=== PATIENT | female | born 1990 | race Hispanic/Latino ===

== ENCOUNTER 2016-12-14 19:36 | Outpatient (CLI) | payer MEDICAID ==
[2016-12-14] MEDS ORDERED: LACTATED RINGERS 500 ML IV ONE (20:57)
--- NOTE | 2016-12-14 21:07 | History and Physical Report ---
History of Present Illness Date of examination: 12/14/16 (pt presents to Triage with c/o ctx and leaking fluid) History of present illness: EDC Confirmation: 01/21/2017 Gestational Age: 11 4/7 weeks Past History : 3 Term Births: 2 Living Children: 2 Para: 2 Prev : 1 Aborta: 0 # 1 Delivery date: 2009 Weeks Gestation: 37` labor: no Delivery type: Delivery location: [facility] [place] Infant Sex: Male weight: 6#12 Comments: no complications # 2 Delivery date: 2013 Weeks Gestation: 37 labor: no Delivery type: Delivery location: [facility] [place] Infant Sex: Female weight: 7#4 Comments: c/s for distress Risk Factors: Smoked Tobacco Use: Current every day smoker Cigarettes: Yes -- 1/2 pack pack(s) per day, Years smoked: 10 Counseled to quit/cut down: yes Tobacco Use Comments: pr reports cutting down from 2 packs/day Passive smoke exposure: yes Drug use: yes Substance: marijuana Comments: uses it to help with "appetite" HIV high-risk behavior: low risk Caffeine use: 4+ drinks per day Alcohol use: no Exercise: no Seatbelt use: 100 % Family History Risk Factors: Family History of MS in females < 65 years old: no Family History of MS in males < 55 years old: no Dietary Counseling: yes Past Medical History: Abnormal Pap Smear - pt reports biopsy @age 16, abnormal paps since Past Surgical History: Past Medical History Surgery (Non-system specialist): Abnormal PAP: positive DIANA Exposure: negative Infertility: negative Uterine Anomaly: negative Uterine Surgery (not C/S): negative Other Gynecologic Problems: negative Family Hx: DM - father, PGF, MGF no fh CA Social Hx: Smoker & THC use Same FOC as other 2 children Infection History Hx of STD: none HIV Risk Eval: low risk Hepatitis B Risk Eval: low risk Personal hx. of genital herpes: no Partner hx. of genital herpes: no Rash, Viral, or Febrile illness since last LMP? no Varicella/Chicken Pox Status: Previous Disease TB Risk: no Genetic History Congenital Heart Defect: Mom: no Dad: no Td Disease: Mom: no Dad: no Thalassemia Mom: no Dad: no Neural Tube Defect Mom: no Dad: no Down's Syndrome Mom: no Dad: no Mega-Sachs Mom: no Dad: no Sickle Cell Disease/Trait Mom: no Dad: no Hemophilia Mom: no Dad: no Muscular Dystrophy Mom: no Dad: no Cystic Fibrosis Mom: no Dad: no [place] Chorea Mom: no Dad: no Mental Retardation Mom: no Dad: no Fragile X Mom: no Dad: no Other Genetic/Chromosomal Disorder Mom: no Dad: no Child w/other defect Mom: no Dad: no Other: FOC born with cleft lip and palate Enviromental Exposures Xray Exposure: no Medication, drug, or alcohol use since LMP: no Chemical/Other Exposure: no Exposure to Cat Liter: no Hx of Parvovirus (Fifth Disease): no Occupational Exposure to Children: none Active Medications (reviewed today): None Current Allergies (reviewed today): SULFA (Critical) Laboratory Results Date/Time Collected: 07/06/2016 Routine Urinalysis Color: yellow Appearance: cloudy Leukocytes: negative Nitrite: negative Urobilinogen: negative Protein: negative Blood: 3+ Ketone: negative Bilirubin: negative Glucose: negative Urine HCG: positive Review of Systems General Denies fever, chills, sweats, anorexia, fatigue, weakness, malaise, weight loss and sleep disorder. Complains of nausea. Denies vomiting, headache, swelling of legs, abdominal pain, vaginal discharge, vaginal bleeding and contractions. Denies vaginal discharge, incontinence, dysuria, hematuria, urinary frequency, amenorrhea, menorrhagia, abnormal vaginal bleeding, pelvic pain, genital sores, decreased libido, painful periods, painful sex, urinary urgency, hot flashes, vaginal dryness, vaginal itching and vaginal odor. CV Denies chest pains, palpitations, syncope, dyspnea on exertion, orthopnea, PND and peripheral edema. Resp Denies cough, dyspnea at rest, excessive sputum, hemoptysis, wheezing and pleurisy. GI Denies nausea, vomiting, diarrhea, constipation, change in bowel habits, abdominal pain, melena, hematochezia, jaundice, gas/bloating, indigestion/ heartburn, dysphagia and odynophagia. Endo Denies cold intolerance, heat intolerance, polydipsia, polyphagia, polyuria and unusual weight change. Breast Denies left breast lump, right breast lump, nipple discharge, bloody discharge from nipple, breast pain, abnormal mammogram and breast enlargement. MS Denies back pain, joint pain, joint swelling, muscle cramps, muscle weakness, stiffness, arthritis, sciatica, restless legs, leg pain at night and leg pain with exertion. Derm Denies rash, itching, dryness and suspicious lesions. Neuro Denies paralysis, paresthesias, headache, seizures, tremors, vertigo, transient blindness, frequent falls, frequent headaches and difficulty walking. Psych Denies depression, anxiety, irritability and mood swings. Eyes Denies blurring, diplopia, irritation, discharge, vision loss, eye pain and photophobia. ENT Denies earache, ear discharge, tinnitus, decreased hearing, nasal congestion, nosebleeds, sore throat and hoarseness. Allergy Denies urticaria, allergic rash, hay fever and recurrent infections. Heme Denies abnormal bruising, bleeding and enlarged lymph nodes. PHYSICAL EXAM HEENT: PERRLA, normal conjunctiva, external nose and nasal mucosa normal, oropharynx clear Neck/Thyroid: supple, thyroid normal Skin no significant abnormal lesions or rashes Chest: respiratory effort normal, clear to auscultation Breasts: normal without skin changes or masses CV: regular, normal S1-S2, no murmur, no rub, no gallop Abdomen: normal bowel sounds, soft, nontender, no HSM Musculoskeletal: grossly normal ROM in joints, no joint tenderness or muscle weakness Neuro: grossly normal DTRs, sensation, strength, cranial nerves Extremities: no clubbing, cyanosis, or edema MEAT HANGER Exams Vulva/Vagina: No lesions, normal BUS, normal rugae Cervix: No lesions; no cervical motion tenderness Uterus: normal size and position, midline, mobile Fundal Ht: 10-12wk FHT: + Adnexae: no masses or tenderness Rectovaginal: no masses or tenderness Past History - Obstetrical History Expected Date of Delivery: 01/21/17 Actual Gestation: 34 Week(s) 4 Day(s) : 3 Para: 2 (last delivery c/s) Hx # Term Pregnancies: 2 Number of Living Children: 2 Medications and Allergies Allergies Allergy/AdvReac Type Severity Reaction Status Date / Time Sulfa (Sulfonamide Allergy Vomiting Verified 12/14/16 20:58 Antibiotics) Active Meds: Active Medications Lactated Ringer's (Lactated Ringers) 500 mls @ 999 mls/hr IV BOLUS ONE Stop: 12/14/16 21:27 - Physical Exam Breasts: Positive: deferred Cardiovascular: Regular rate, Normal S1, Normal S2 Lungs: Positive: Normal air movement Abdomen: Positive: normal appearance, soft, normal bowel sounds. Negative: distention, tenderness Genitourinary (Female): Positive: normal external genitalia (labial pierced), normal perenium Vulva: both: normal Vagina: Positive: normal moisture. Negative: discharge Cervix: Negative: lesion, discharge Uterus: Positive: normal size, normal contour Adnexa: both: normal Anus/Rectum: Positive: normal perianal skin, heme negative. Negative: rectal mass, hemorrhoids Extremities: Positive: normal Deep Tendon Reflex Grade: Normal +2 - Obstetrical FHR: category 1 Uterine Contraction Monitor Mode: External Cervical Dilatation: 2 (foul vaginal odor) Cervical Effacement Percentage: 10 station: -4 Uterine Contraction Pattern: Irregular Uterine Contraction Intensity: Mild Results All other labs normal. Laboratory Data-Patient Name: ANNE KRISHNA Test Date Result Blood Type 09/18/2016 O Rh 09/18/2016 Positive Antibody Screen negative Rubella 09/18/2016 IMMUNE Serology (RPR) 09/18/2016 NR HBsAg 09/18/2016 Negative Hemoglobin 10/09/2016 12.2 Hematocrit 10/09/2016 36.1 Platelets 09/18/2016 233 [id number] Chlamydia DNA 07/06/2016 Negative GC DNA/Culture 07/06/2016 Urine Culture 09/18/2016 Final report Group B Strep cult PAP 07/11/2016 Normal, Satisfactory HIV 09/18/2016 AFP/Quad Screen Glucola Test 3hr GTT (Fasting) 1 hr 2 hr 3 hr [facility]-Patient Name:ANNE KRISHNA Test Date Result Varicella Ab Sickle Cell 09/18/2016 Negative PPD Fibronectin Cystic Fibrosis Parvovirus TSH Free T4 Hepatitis C ALT AST Uric Acid Creatinine 24 hr Urine Protein MARIA TERESA Assessment and Plan 26yo @ 34 weeks with c/o ctx and leaking fluid Will get US for CESAR and BPP Will consult with if ROM Wet prep + clue cells. RX sent to [facility] pt made aware of findings BPP 02/27 CESAR 26 Pt d/c home after IVFs Pepcid All questions addressed.
[2016-12-14] MEDS ORDERED: PEPCID IV SCH (22:00)
--- NOTE | 2016-12-15 08:30 | Ultrasound Report ---
BIOPHYSICAL PROFILE: INDICATION: labor, leaking fluid. COMPARISON: None similar at this institution. TECHNIQUE: Transabdominal ultrasound with Doppler interrogation. 2 - breathing movements 2 - movements 2 - posture and tone 2 - Qualitative amniotic fluid volume 8 - TOTAL SCORE OF POSSIBLE 8 Heart Rate (bpm) 132
--- NOTE | 2016-12-15 08:40 | Ultrasound Report ---
OB LIMITED INDICATION: labor, leaking fluid. COMPARISON: None similar. TECHNIQUE: Transabdominal grayscale ultrasound with Doppler interrogation. Gestation: Chávez Amniotic Fluid: Increased (> 24 cm) CESAR = 26.3 cm Heart Rate: 124 BPM
== END 2016-12-14 22:35 | disposition home or self-care (01) ==
LOC: TRG 19:36
PROVIDERS: ATTEND Obstetrics & Gynecology
DX: O42.92 Full-term premature rupture of membranes, unspecified as to length of time between rupture and onset of labor (principal); O62.9 Abnormality of forces of labor, unspecified; O26.853 Spotting complicating pregnancy, third trimester; Z3A.34 34 weeks gestation of pregnancy
CPT/HCPCS: 76815; 76819; 96360; 96374; J7120

== ENCOUNTER 2016-12-22 13:18 | Inpatient (IN) | payer MEDICAID ==
[2016-12-22] MEDS ORDERED: LACTATED RINGERS 3,000 ML ONE (14:03)
[2016-12-22] MEDS ORDERED: REGLAN IV SCH (14:10)
[2016-12-22] MEDS ORDERED: PEPCID IV SCH (14:10)
--- NOTE | 2016-12-22 14:49 | Anesthesia Consultation ---
Anesthesia Consult and Med Hx Date of service: 12/22/16 - Airway Anesthetic Teeth Evaluation: Poor ROM Head & Neck: Adequate Mental/Hyoid Distance: Adequate Mallampati Class: Class II Intubation Access Assessment: Possibly Difficult - Pulmonary Exam CTA: Yes - Cardiac Exam Cardiac Exam: RRR - Pre-Operative Health Status ASA Pre-Surgery Classification: ASA3, Emergency Proposed Anesthetic Plan: Epidural, Spinal - Pulmonary Hx Asthma: No COPD: No Hx Pneumonia: No - Cardiovascular System Hx Hypertension: No - Central Nervous System Hx Seizures: No Hx Psychiatric Problems: No - Endocrine Hx Renal Disease: No Hx End Stage Renal Disease: No Hx Hypothyroidism: No Hx Hyperthyroidism: No - Hematic Hx Anemia: No Hx Sickle Cell Disease: No - Other Systems Hx Alcohol Use: No
--- NOTE | 2016-12-22 14:49 | Anesthesia Day of Surgery ---
Anesthesia Day of Surgery - Day of Surgery Patient Examined: Yes Patient H&P Reviewed: Yes Patient is NPO: Yes (FSP)
[2016-12-22 14:52] LABS: Basophils % (Auto) 0.2 % (0.0-1.8); Eosinophils % (Auto) 0.6 % (0.0-4.3); Hematocrit 37.5 % (30.3-42.9); Hemoglobin 12.9 gm/dl (10.1-14.3); Mean Corpuscular HGB Conc 35 % (30-34); Mean Corpuscular Hemoglobin 30 pg (28-32); Mean Corpuscular Volume 88 fl (79-97); Platelet Count 197 K/mm3 (140-440); Red Blood Count 4.26 M/mm3 (3.65-5.03); Red Cell Distribution Width 13.3 % (13.2-15.2); White Blood Count 12.9 K/mm3 (4.5-11.0)
[2016-12-22] MEDS ORDERED: BICITRA PO SCH (15:00)
[2016-12-22] MEDS ORDERED: PITOCin/NS 20 UNIT/1000ML DRIP 20 UNITS/1,000 ML BAG IV SCH ×2 (15:00→19:46)
[2016-12-22] MEDS ORDERED: LACTATED RINGERS 1,000 ML IV SCH (15:00)
[2016-12-22] MEDS ORDERED: NEO SYNEPHRINE/NS Syringe(OR USE) IV ONE (15:00)
[2016-12-22] MEDS ORDERED: ANCEF/STERILE WATER 2 GM/20 ML 2 GM/20 ML SYRINGE IV NR (15:00)
--- NOTE | 2016-12-22 15:09 | History and Physical Report ---
History of Present Illness Date of examination: 12/22/16 Date of admission: 12/22/16 13:18 History of present illness: Patient presented to labor and delivery with complaints of spontaneous rupture membranes at home with regular uterine contractions. Initial exam by RN revealed the patient to be 3 cm and in active labor. Patient with previous section scheduled for repeat and desires for permanent sterilization. Patient is being admitted for section with tubal ligation Menstrual History Regularity: regular Menses every: 28-30 days Duration: 7 LMP: 03/25/2016 LMP reliability: definite LMP character: normal test type: urine test Date: 07/06/2016 BC at conception: none Planned ? no EDC Calculations LMP: 12/30/2016 EDC Confirmation: 01/21/2017 Past History : 3 Term Births: 2 Living Children: 2 Para: 2 Prev : 1 Aborta: 0 # 1 Delivery date: 2009 Weeks Gestation: 37` labor: no Delivery type: Delivery location: [facility] [place] Sex: Male weight: 6#12 Comments: no complications # 2 Delivery date: 2013 Weeks Gestation: 37 labor: no Delivery type: Delivery location: [facility] [place] Infant Sex: Female weight: 7#4 Comments: c/s for distress Risk Factors: Smoked Tobacco Use: Current every day smoker Cigarettes: Yes -- 1/2 pack pack(s) per day, Years smoked: 10 Counseled to quit/cut down: yes Tobacco Use Comments: pr reports cutting down from 2 packs/day Passive smoke exposure: yes Drug use: yes Substance: marijuana Comments: uses it to help with "appetite" HIV high-risk behavior: low risk Caffeine use: 4+ drinks per day Alcohol use: no Exercise: no Seatbelt use: 100 % Family History Risk Factors: Family History of MT in females < 65 years old: no Family History of MT in males < 55 years old: no Dietary Counseling: yes Past Medical History: Abnormal Pap Smear - pt reports biopsy @age 16, abnormal paps since Past Surgical History: Past Medical History Surgery (Non-ob gyn): Abnormal PAP: positive DIANA Exposure: negative Infertility: negative Uterine Anomaly: negative Uterine Surgery (not C/S): negative Other Gynecologic Problems: negative Family Hx: DM - father, PGF, MGF no fh CA Social Hx: Smoker & THC use Same FOC as other 2 children Infection History Hx of STD: none HIV Risk Eval: low risk Hepatitis B Risk Eval: low risk Personal hx. of genital herpes: no Partner hx. of genital herpes: no Rash, Viral, or Febrile illness since last LMP? no Varicella/Chicken Pox Status: Previous Disease TB Risk: no Genetic History Congenital Heart Defect: Mom: no Dad: no Td Disease: Mom: no Dad: no Thalassemia Mom: no Dad: no Neural Tube Defect Mom: no Dad: no Down's Syndrome Mom: no Dad: no Mega-Sachs Mom: no Dad: no Sickle Cell Disease/Trait Mom: no Dad: no Hemophilia Mom: no Dad: no Muscular Dystrophy Mom: no Dad: no Cystic Fibrosis Mom: no Dad: no [place] Chorea Mom: no Dad: no Mental Retardation Mom: no Dad: no Fragile X Mom: no Dad: no Other Genetic/Chromosomal Disorder Mom: no Dad: no Child w/other defect Mom: no Dad: no Other: FOC born with cleft lip and palate Enviromental Exposures Xray Exposure: no Medication, drug, or alcohol use since LMP: no Chemical/Other Exposure: no Exposure to Cat Liter: no Hx of Parvovirus (Fifth Disease): no Occupational Exposure to Children: none Current Allergies (reviewed today): SULFA (Critical) Past History Past Medical History: other (see HPI) Past Surgical History: other (see HPI) STAFF MIDWIFE/APPRENTICESHIP DIRECTOR History: other (see HPI) Family/Genetic History: other (see HPI) Social history: other (see HPI) - Obstetrical History Expected Date of Delivery: 01/08/17 Actual Gestation: 37 Week(s) 4 Day(s) : 3 Para: 2 Hx # Term Pregnancies: 2 Number of Pregnancies: 0 Spontaneous Abortions: 0 Induced : 0 Number of Living Children: 2 Medications and Allergies Allergies Allergy/AdvReac Type Severity Reaction Status Date / Time Sulfa (Sulfonamide Allergy Vomiting Verified 12/14/16 20:58 Antibiotics) tramadol Allergy Itching Verified 12/22/16 14:07 Home Medications Medication Instructions Recorded Confirmed Last Taken Type Ferrous Sulfate [Feosol 325 MG tab] 325 mg PO BID #60 tablet 12/22/16 Unknown Rx Ibuprofen [Motrin 800 MG tab] 800 mg PO Q6H PRN #30 tablet 12/22/16 Unknown Rx oxyCODONE /ACETAMINOPHEN [Percocet 1 - 2 tab PO Q4H PRN #30 tablet 12/22/16 Unknown Rx 5/325 mg] Active Meds: Active Medications Citric Acid/Sodium Citrate (Bicitra) 30 ml PO ONCE YESSY Stop: 12/22/16 23:00 Famotidine (Pepcid) 20 mg IV ONCE YESSY Stop: 12/22/16 23:00 Cefazolin Sodium (Ancef/Sterile Water 2 Gm/20 Ml) 2 gm in 20 mls @ 80 mls/hr IV PREOP NR PRN Reason: Protocol Stop: 12/22/16 23:00 Lactated Ringer's (Lactated Ringers) 1,000 mls @ 2,250 mls/hr IV PREOP YESSY Stop: 12/23/16 15:27 Last Admin: 12/22/16 14:25 Dose: 2,250 mls/hr Oxytocin/Sodium Chloride (Pitocin/Ns 20 Unit/1000ml Drip) 20 units in 1,000 mls @ 0 mls/hr IV TITR YESSY PRN Reason: As Directed Metoclopramide HCl (Reglan) 10 mg IV ONCE YESSY Stop: 12/22/16 23:00 - Vital Signs Vital signs: Vital Signs Pulse BP 82 117/71 12/22/16 13:51 12/22/16 13:51 Temp Pulse Resp BP Pulse Ox 96.2 F L 93 H 12 106/70 65 L 12/22/16 14:17 12/22/16 14:28 12/22/16 14:17 12/22/16 14:26 12/22/16 14:28 - Physical Exam Breasts: Positive: deferred Cardiovascular: Regular rate Lungs: Positive: Normal air movement Abdomen: Positive: normal appearance, soft, guarding Vagina: Positive: normal moisture Extremities: Positive: edema Deep Tendon Reflex Grade: Normal +2 Results Result Diagrams: 12/22/16 14:30 Abnormal lab results 12/22/16 Range/Units 14:30 WBC 12.9 H (4.5-11.0) K/mm3 MCHC 35 H (30-34) % Seg Neutrophils % 73.5 H (40.0-70.0) % Seg Neutrophils # 9.5 H (1.8-7.7) K/mm3 All other labs normal. Assessment and Plan - Patient Problems (1) Premature rupture of membranes (PROM), onset of labor before 24 hours, antepartum Current Visit: Yes Status: Acute (2) Encounter for sterilization Current Visit: Yes Status: Acute Plan to address problem: This patient is very sure she desires permanent sterilizationPatient desires permanent sterilization. She declined temporary contraceptives. She understands the risks of the surgery include bleeding infection possible damage to bowel bladder or ureters. She understands that this surgery would make her permanently sterile. She also understands the approximate 1% failure rate. The patient understands all the above and desires to proceed. (3) Previous section Current Visit: No Status: Acute Plan to address problem: This patient active labor with previous section. Patient admitted for repeat section.Patient informed the risks of the surgery include bleeding possibly bleeding heavy enough to require blood transfusion, infection possible damage to bowel bladder ureter. All questions answered. Patient agrees to proceed
[2016-12-22] MEDS ORDERED: ANCEF/STERILE WATER 2 GM/20 ML IV ONE (15:39)
[2016-12-22] MEDS ORDERED: ePHEDrine SULFATE ONE (15:43)
[2016-12-22] MEDS ORDERED: WATER FOR IRRIG STERILE IR ONE (15:50)
[2016-12-22] MEDS ORDERED: NACL 0.9% IR ONE (15:50)
[2016-12-22] MEDS ORDERED: LACTATED RINGERS 1,000 ML ONE (15:54)
[2016-12-22] MEDS ORDERED: ZOFRAN ONE (16:07)
[2016-12-22] MEDS ORDERED: XYLOCAINE MPF 2% ONE (16:55)
[2016-12-22] MEDS ORDERED: BOOSTRIX IM ONE (17:12)
[2016-12-22 17:26] LABS: Urine Drugs of Abuse Note Disclamer
[2016-12-22] MEDS ORDERED: TORADOL IV ONE ×2 (18:00→19:00)
[2016-12-22] MEDS ORDERED: ZOFRAN IV PRN (18:58)
--- NOTE | 2016-12-22 18:58 | Post Anesthesia Evaluation ---
- Post Anesthesia Evaluation Patient Participated: Yes Airway Patent: Yes Stable Respiratory Function: Yes Temp > 96.8F: Yes Pain Manageable: Yes Adequeate Hydration: Yes Anesthesia Complications: No Block Receding Appropriately: Yes
[2016-12-22] MEDS ORDERED: NARCAN 0.4 MG/1 ML IV PRN ×2 (19:05→19:46)
[2016-12-22] MEDS ORDERED: SODIUM CHLORIDE FLUSH SYRINGE 10 ML IV NR (19:46)
[2016-12-22] MEDS ORDERED: D5LR 1,000 ML IV SCH (19:46)
[2016-12-22] MEDS ORDERED: TUCKS PAD TP PRN (19:46)
[2016-12-22] MEDS ORDERED: LANSINOH TP PRN (19:46)
[2016-12-22] MEDS: ANCEF/NS 1 GM/50 ML 1 GM/50 ML BAG IV SCH (20:18)
[2016-12-22] MEDS: DILAUDID IV PRN (20:56)
[2016-12-23] MEDS: DILAUDID IV PRN ×2 (03:07→06:17)
[2016-12-23 05:56] LABS: Hematocrit 32.4 % (30.3-42.9); Hemoglobin 11.1 gm/dl (10.1-14.3)
[2016-12-23] MEDS: MOTRIN PO PRN ×2 (08:39→13:56)
[2016-12-23] MEDS: NORCO 5/325 PO PRN ×2 (08:39→13:57)
[2016-12-23] MEDS: FEOSOL PO SCH ×2 (08:41→08:42)
[2016-12-23] MEDS: PRENATAL VITAMIN PO SCH (08:43)
[2016-12-23] MEDS ORDERED: MILK OF MAGNESIA PO PRN (10:27)
[2016-12-23] MEDS ORDERED: MYLICON PO PRN (10:28)
[2016-12-23] MEDS: ANCEF/NS 1 GM/50 ML 1 GM/50 ML BAG IV SCH (13:50)
--- NOTE | 2016-12-23 14:43 | Progress Note ---
Assessment and Plan - Patient Problems (1) delivery delivered Onset Date: ~12/22/16 Current Visit: Yes Status: Acute (2) Previous section Current Visit: No Status: Acute (3) Encounter for sterilization Current Visit: Yes Status: Acute Subjective - Subjective Date of service: 12/23/16 Principal diagnosis: Repeat c/s deliveredd Interval history: Pt looks and feels good 1 day post c/s and BTL Patient reports: appetite normal, voiding normally, pain well controlled, ambulating normally [place]: doing well Objective - Vital Signs Latest vital signs: Vital Signs Temp Pulse Pulse Resp BP BP Pulse Ox 12/23/16 11:35 98.3 F 76 20 102/58 12/23/16 08:50 98.0 F 68 18 108/58 12/23/16 05:11 98 F 73 20 113/62 12/23/16 00:50 97.9 F 74 18 103/61 12/22/16 18:15 16 12/22/16 17:50 61 17 106/63 96 12/22/16 17:45 78 30 H 112/73 98 12/22/16 17:40 73 24 122/62 98 12/22/16 17:35 70 15 112/58 98 12/22/16 17:30 67 14 119/67 98 12/22/16 17:25 70 24 113/70 98 12/22/16 17:20 71 20 112/66 98 12/22/16 17:15 65 31 H 110/66 99 12/22/16 17:10 72 16 114/69 99 12/22/16 17:05 70 28 H 112/73 99 12/22/16 17:00 71 23 112/63 99 12/22/16 16:55 55 L 20 116/66 98 12/22/16 16:50 67 26 H 108/63 98 12/22/16 16:46 60 22 118/68 98 12/22/16 16:45 97.5 F L 12/22/16 16:43 99 Intake and Output 12/22/16 12/23/16 12/23/16 22:59 06:59 14:59 Intake Total 2500 240 720 Output Total 1200 1000 1050 Balance 1300 760 -330 Intake: IV 2500 ANCEF/NS 1 GM/50 ML 1 gm 50 In 50 ml @ 100 mls/hr IV Q8H [facility] Rx#:[id number] D5lr 1,000 ml @ 125 mls/ 125 hr IV DIRECT YESSY Rx#: [id number] PITOCin/NS 20 UNIT/1000ML 125 DRIP 20 units In 1,000 ml @ 250 mls/hr IV DIRECT YESSY Rx#:[id number] Oral 720 Intake, Free Water 240 Output: Urine 1200 1000 1050 Indwelling Catheter 1000 Void 1050 Other: Total, Intake Amount 240 Total, Output Amount 1000 550 # Voids Indwelling Catheter 1 Estimated Blood Loss 800 - Exam Breasts: Present: deferred Cardiovascular: Present: Regular rate Lungs: Present: Normal air movement Abdomen: Present: normal appearance, soft. Absent: distention Uterus: Present: firm Extremities: Present: normal Incision: Present: normal, dry, intact - Labs Labs: Abnormal lab results 12/22/16 Range/Units 14:30 WBC 12.9 H (4.5-11.0) K/mm3 MCHC 35 H (30-34) % Seg Neutrophils % 73.5 H (40.0-70.0) % Seg Neutrophils # 9.5 H (1.8-7.7) K/mm3
[2016-12-23] MEDS: PERCOCET 5/325 PO PRN (19:53)
[2016-12-24] MEDS: NORCO 5/325 PO PRN ×2 (00:52→11:25)
[2016-12-24] MEDS ORDERED: BOOSTRIX IM ONE (06:00)
[2016-12-24] MEDS: PERCOCET 5/325 PO PRN ×2 (06:33→13:58)
--- NOTE | 2016-12-24 09:14 | Discharge Summary ---
Providers - Providers Date of Admission: 12/22/16 13:18 Date of discharge: 12/24/16 Attending physician: RAFITA BRUSH 12/22/16 19:46 Consult to Aircraft Armorer [CONS] Routine Reason For Exam: Primary care physician: RAFITA BRUSH Hospitalization Reason for admission: rupture of membranes Delivery: Procedure: bilateral tubal ligation, repeat low transverse Incision: normal, dry, intact complications: none Discharge diagnosis: IUP at term delivered baby: female Pertinent studies: Hct 32 Hospital course: Repeat c/s admitted with SROM and done prior to scheduled section and BTL. Nl pp and PO course Condition at discharge: Good Disposition: DISCHARGED TO HOME OR SELFCARE - Discharge Diagnoses (1) delivery delivered Status: Acute (2) Previous section Status: Acute (3) Encounter for sterilization Status: Acute Plan - Discharge Medications Prescriptions: Ferrous Sulfate [Feosol 325 MG tab] 325 mg PO BID #60 tablet Ibuprofen [Motrin 800 MG tab] 800 mg PO Q6H PRN #30 tablet PRN Reason: Pain oxyCODONE /ACETAMINOPHEN [Percocet 5/325 mg] 1 - 2 tab PO Q4H PRN #30 tablet PRN Reason: Pain, Moderate - Provider Discharge Summary Activity: no sex for 6 weeks, no heavy lifting 4 weeks, no strenuous exercise Diet: routine Instructions: routine Additional instructions: [] Smoking cessation referral if applicable(refer to patient education folder for contact #) [] Refer to [facility]'s [facility] Booklet Call your doctor immediately for: * Fever > 100.5 * Heavy vaginal bleeding ( >1 pad per hour) * Severe persistent headache * Shortness of breath * Reddened, hot, painful area to leg or breast * Drainage or odor from incision. * Keep incision clean and dry at all times and follow doctor's instructions regarding bathing/showering - Follow up plan Follow up: RAFITA BRUSH MD [Primary Care Provider] - 7 Days
[2016-12-24] MEDS: MOTRIN PO PRN (11:24)
[2016-12-24] MEDS: FEOSOL PO SCH (11:25)
[2016-12-24] MEDS: PRENATAL VITAMIN PO SCH (11:25)
[2016-12-24 17:00] VITALS: BP 108/70
--- NOTE | 2016-12-27 13:49 | Operative Report ---
Operative Report Operative Report: Date of procedure: 12/22/2016 Pre-operative diagnosis: Intrauterine at 35 weeks with previous section with premature rupture membranes and in active labor desires permanent sterilization Post-operative diagnosis: Same Procedure name(s): Repeat low transverse section with bilateral tubal ligation modified [place] type Surgeon: Pantera Allen MD Service Station Equipment Mechanic: Anesthesia: Spinal EBL: 700 mL Complications: None Findings: Patient was in normal uterus tubes and ovaries bilaterally. Female infant weight 5 lbs. 13 oz. Apgars 9 at 1 minute and 9 at 5 minutes Specimen(s): Portion of right and left fallopian tubes Procedure: The patient was brought to the operating room. A spinal was placed without any complications. She was then placed in left lateral tilt. Prepped and draped in the usual sterile manner. After testing for adequate anesthesia level, a Pfannenstiel incision was made through her previous scar. This incision was taken down to the fascia. The fascia was then nicked in the midline. This incision was extended out laterally with Lozada scissors. The fascia was then sharply and bluntly from the underlying rectus muscles. The rectus muscles were bluntly and sharply . The peritoneum was then entered with the paper cap machine operator's fingers. This incision was spread vertically with care not to damage the bladder below. The bladder flap was then formed sharply and bluntly with Metzenbaum scissors. The Alonso self- retaining tractor was then placed without any difficulty. A transverse incision was made in lower uterine segment. This incision was extended laterally with the operators fingers. The amniotic sac was then entered bluntly with the paper cap machine operator's fingers. The infant was delivered from the vertex position. Bulb suction on the mother's abdomen. Cord was double clamped and cut. The was then passed to the nursery personnel who were in attendance. The above scores were given by the nursery personnel. The placenta was then bluntly removed. The uterus was then externalized and wiped clean the remaining products. The uterine incision was closed in layers. The first incision was closed in a locking manner using 0 Vicryl. This was followed by imbricating stitch also with 0 Vicryl. Attention was then switched to the patient's fallopian tubes. Each fallopian tube was identified by its fimbriated end. A portion of each tube was grabbed with the [place] clamp approximately 2-3 cm from the cornua. Each loop was double ligated with 0 plain suture. The loop were cut with Metzenbaum scissors. Each stump was found to be hemostatic and cauterized with the Bovie. Attention was then switched back to the uterine closure. This closure was hemostatic. The bladder flap was copiously irrigated and found to be hemostatic. The pelvis was copiously irrigated and found to be hemostatic. The uterus was then placed back to the patient's abdomen. The retractors were removed. The rectus muscles were inspected and found to be hemostatic. The fascia was then closed in a running manner using 0 Vicryl. This incision was hemostatic irrigation Bovie. The skin was reapproximated with 4-0 Vicryl subcuticularly. The patient tolerated procedure well. Her urine was clear. The infant was admitted to the well baby nursery. The patient was accompanied to recovery room in good condition. Instrument count correct 3.
== END 2016-12-24 17:00 | disposition home or self-care (01) | DRG 765 ==
LOC: LD 13:18 → OB 18:34
PROVIDERS: ADMIT Obstetrics & Gynecology; ATTEND Obstetrics & Gynecology
PROC: 10D00Z1 Extraction of Products of Conception, Low, Open Approach (ICD-10-PCS; principal; 2016-12-22)
PROC: 0UB70ZZ Excision of Bilateral Fallopian Tubes, Open Approach (ICD-10-PCS; 2016-12-22)
DX: O34.211 Maternal care for low transverse scar from previous cesarean delivery (principal); O99.324 Drug use complicating childbirth; O99.334 Smoking (tobacco) complicating childbirth; F17.210 Nicotine dependence, cigarettes, uncomplicated; F12.10 Cannabis abuse, uncomplicated; O42.02 Full-term premature rupture of membranes, onset of labor within 24 hours of rupture; Z3A.37 37 weeks gestation of pregnancy; Z30.2 Encounter for sterilization; Z71.6 Tobacco abuse counseling; Z71.3 Dietary counseling and surveillance; Z88.2 Allergy status to sulfonamides; Z37.0 Single live birth
CPT/HCPCS: 36415; 80307; 85014; 85018; 85025; 86850; 86900; 86901; 88302; 90471; 90715; J0690; J1170; J1885; J2370; J2405; J2590; J2765; J7120; J7121